=== PATIENT | female | born 1970 | race Caucasian/White ===

== ENCOUNTER 2021-06-29 11:47 | Emergency (ER) | payer OTHER, SELFPAY ==
[2021-06-29 11:53] VITALS: BP 117/66; PULSE 69; RESP 14; TEMP 36.3; O2SAT 99
--- NOTE | 2021-06-29 12:32 | ED.GENADULT ---
HPI - General Adult General Chief complaint: Nausea/Vomiting/Diarrhea Stated complaint: COVID +, H/A, DIARRHEA, DIZZY Time Seen by Provider: 06/29/21 12:31 Source: patient Mode of arrival: ambulatory Limitations: no limitations History of Present Illness HPI narrative: Patient is Covid positive and was started on ivermectin by her physician, given 2 doses she took the last dose Tuesday and on Tuesday developed diarrhea and nausea. She is able to eat and drink. She has maintained a low-grade temperature of 100. She was told by her primary care physician to not take any antidiarrheals. Associated symptoms: cough and headaches Related Data Home Medications Medication Instructions Recorded Confirmed famotidine 06/29/21 ivermectin 06/29/21 Allergies Allergy/AdvReac Type Severity Reaction Status Date / Time No Known Allergies Allergy Verified 06/29/21 12:27 Review of Systems Review of Systems: All systems reviewed & are unremarkable except as noted in HPI and below Exam Const: General: no acute distress and alert Orientation/consciousness: patient oriented x3 HENMT: Head: normal to inspection Eyes: Pupils: Equal, round and reactive pupils present Resp: Effort & Inspection: normal respiratory effort Auscultation: clear to auscultation bilaterally Cardio: Rate: regular rate Rhythm: regular rhythm GI: GI Palp: Yes Soft to palpation Auscultation: normal bowel sounds Extrem: General: normal to inspection Psych: Mental Status: mental status grossly normal Course Course Emergency Course: Patient is feeling somewhat better after IV fluids. Instructed to treat all symptoms with [id number] medications as needed. Vital Signs Vital signs: Vital Signs Temperature 36.3 C L 06/29/21 11:53 Pulse Rate 69 06/29/21 11:53 Respiratory Rate 14 06/29/21 11:53 Blood Pressure 117/66 06/29/21 11:53 Pulse Oximetry 99 06/29/21 11:53 Temperature 36.3 C L 06/29/21 11:53 Pulse Rate 69 06/29/21 11:53 Respiratory Rate 14 06/29/21 11:53 Blood Pressure 117/66 06/29/21 11:53 Pulse Oximetry 99 06/29/21 11:53 Medical Decision Making Vital Signs Vital Signs: Vital Signs Temperature 36.3 C L 06/29/21 11:53 Pulse Rate 69 06/29/21 11:53 Respiratory Rate 14 06/29/21 11:53 Blood Pressure 117/66 06/29/21 11:53 Pulse Oximetry 99 06/29/21 11:53 Temperature 36.3 C L 06/29/21 11:53 Pulse Rate 69 06/29/21 11:53 Respiratory Rate 14 06/29/21 11:53 Blood Pressure 117/66 06/29/21 11:53 Pulse Oximetry 99 06/29/21 11:53 Lab Data Result diagrams: 06/29/21 12:48 06/29/21 12:48 Labs: Lab Results 06/29/21 06/29/21 06/29/21 Range/Units 12:48 12:48 13:11 WBC 3.1 L (4.5-10.0) K/mm3 RBC 4.23 (4.2-5.4) M/mm3 Hgb 12.3 (12.0-15.0) g/dL Hct 38.0 (37.0-47.0) % MCV 89.8 (80-100) fl MCH 29.1 (26-34) pg MCHC 32.4 (32-36) g/dl RDW 13.3 (11.5-14.5) % Plt Count 234 (150-375) k/mm3 MPV 9.9 (7.4-10.4) fl Immature Gran % (Auto) 0.0 (0-0.5) % Neut % (Auto) 54.9 (45.5-73.1) % Lymph % (Auto) 31.4 (18.3-44.2) % [place] % (Auto) 12.4 H (2.6-8.5) % Eos % (Auto) 1.0 (0-4.4) % Baso % (Auto) 0.3 (0.2-1.2) % Lymph # (Auto) 0.96 (0.9-3.2) K/mm3 [place] # (Auto) 0.4 (0.1-0.6) K/mm3 Eos # (Auto) 0.0 (0-0.3) K/mm3 Baso # (Auto) 0.0 (0.0-0.1) K/mm3 Abs Immat Gran (auto) 0.00 (0.00-0.031) K/mm3 Absolute Neuts (auto) 1.7 (1.3-6.7) K/mm3 Absolute Nucleated RBC 0.0 (0.0-0.012) K/mm3 Nucleated RBC % 0.0 (0.0-0.2) % Sodium 134 L (137-145) mmol/L Potassium 3.9 (3.4-5.0) mmol/L Chloride 101 (98-107) mmol/L Carbon Dioxide 23 (22-30) mmol/L Anion Gap 10 (8-16) mmol/L BUN 6 L (7-17) mg/dL Creatinine 0.60 L (0.7-1.0) mg/dL Estim Creat Clear Calc 101 ml/min Estimated GFR > 60 (59 - ) Glucose 113 H (65-11
[2021-06-29 13:03] LABS: Basophils Percent Auto 0.3 % (0.2-1.2); Hemoglobin 12.3 g/dL (12.0-15.0); Lymphocytes Absolute Auto 0.96 K/mm3 (0.9-3.2); Lymphocytes Percent Auto 31.4 % (18.3-44.2); Mean Corpuscular HGB Conc 32.4 g/dl (32-36); Mean Corpuscular Hemoglobin 29.1 pg (26-34); Mean Corpuscular Volume 89.8 fl (80-100); Mean Platelet Volume 9.9 fl (7.4-10.4); Monocytes Absolute Auto 0.4 K/mm3 (0.1-0.6); Monocytes Percent Auto 12.4 % (2.6-8.5); Neutrophils Absolute Auto 1.7 K/mm3 (1.3-6.7); Neutrophils Percent Auto 54.9 % (45.5-73.1); Platelet Count Result 234 k/mm3 (150-375); Red Blood Count 4.23 M/mm3 (4.2-5.4); Red Cell Distribution Width 13.3 % (11.5-14.5); White Blood Count 3.1 K/mm3 (4.5-10.0)
[2021-06-29 13:09] LABS: Alanine Aminotransferase 39 U/L (4-35); Albumin Level 4.2 g/dL (3.5-5.1); Alkaline Phosphatase 55 U/L (38-126); Anion Gap 10 mmol/L (8-16); Aspartate Amino Transferase 40 U/L (14-36); Bilirubin,Total < 0.1 mg/dL (0.2-1.3); Blood Urea Nitrogen 6 mg/dL (7-17); Calcium 9.5 mg/dL (8.4-10.2); Carbon Dioxide 23 mmol/L (22-30); Chloride 101 mmol/L (98-107); Estimated CRCL calculation 101 ml/min; Estimated Glomerular Filt Rate > 60; Glucose 113 mg/dL (65-110); Lipase 63 U/L (23-300); Potassium 3.9 mmol/L (3.4-5.0); Sodium 134 mmol/L (137-145)
[2021-06-29 13:26] LABS: Add Urine Microscopic? YES; Appearance Urine Clear (Clear); Bilirubin Urine Negative (Negative); Blood Urine Negative (Negative); Color Urine Yellow (Yellow); Glucose Urine UA Negative (Negative); Ketones Urine Negative (Negative); Leukocyte Esterase Ur Negative LEU/UL (Negative); Mucus Urine Rare /lpf; Nitrate Urine Negative (Negative); Protein Urine Negative (Negative); RBC Urine 0-2 /hpf (0-2); Specific Grav Ur 1.008 (1.001-1.035); Urobilinogen Urine Negative mg/dL (<2.0); WBC Urine 0-3 /hpf
[2021-06-29] MEDS: SODIUM CHLORIDE 0.9% IV 1,000 ML 999 ML IV CONT (13:32)
== END 2021-06-29 15:14 | disposition home or self-care (01) ==
PROVIDERS: Emergency Provider Family Medicine; PCP Physician Assistant Medical
DX: U07.1 COVID-19 (principal)
CPT/HCPCS: 36415; 80053; 81001; 83690; 85025; 96360; 99283; J7030